=== PATIENT | male | born 1990 | race African-American/Black ===

== ENCOUNTER → 2021-03-15 | Outpatient (CLI) | payer OTHER ==
--- NOTE | 2021-03-15 10:59 | REP ---
INDICATION: CUTS LAXA HALEY BREAST AFTER SIGNIFICANT WEIGHT LOSS; CUTIS LAXA HALEY BREASTS AFTER SIGNIFICANT WEIGHT LOSS. COMPARISON: No comparison breast imaging. TECHNIQUE: Bilateral CC and MLO) view(s) were taken. FINDINGS: There is a pattern of fibroglandular tissue in the subareolar region and upper outer quadrant regions of each breast consistent with gynecomastia. This is symmetric. No mass lesion is seen. No architectural distortion or microcalcification is seen. No worrisome skin changes noted. No visible adenopathy. Targeted bilateral breast sonography: Bilateral retroareolar sonographic scanning shows no abnormality on either side. No mass or cyst is seen.. IMPRESSION: BI-RADS category 2 benign findings. Gynecomastia pattern bilaterally. This mammogram was interpreted with the aid of an FDA-approved computer-aided detection system. The patient states he had a clinical breast exam in January of 2021. The patient letter being requested is male patient letter M 2. RECOMMENDATION: Clinical follow-up. <Electronically signed by Isaac Guidry > 03/15/21 [id number]
== END ==
LOC: M WHC 08:36
PROVIDERS: ATTEND Physician Assistant
DX: L98.7 Excessive and redundant skin and subcutaneous tissue (principal); R63.4 Abnormal weight loss
CPT/HCPCS: 76642; 77066; G0279

== ENCOUNTER 2022-01-17 09:40 | Observation (INO) | payer OTHER ==
[2022-01-17] VITALS (7 sets, daily range): BP systolic 112–141; BP diastolic 59–72
[~2022-01-17] VITALS: Ht 190.5 cm; Wt 104.8 kg
[~2022-01-17 09:40] MED LIST: LIDOCAINE 1% MDV 20ML VIAL SQ PRN; LR 1,000 ML IV ONE; MELO15TA28 PO; ceFAZolin SOD 2 GM in IV 1 EA IV ONE
[2022-01-17 10:26] LABS: MEAN CORPUSCULAR HEMOGLOBIN 26.7 pg (27.0-33.0); MEAN CORPUSCULAR HGB CONC 33.3 g/dl (32.0-36.5); MEAN CORPUSCULAR VOLUME 80.2 fl (80.0-96.0); PLATELET COUNT, AUTOMATED 248 10^3/uL (150-450); RED BLOOD COUNT 5.61 10^6/uL (4.30-6.10); WHITE BLOOD COUNT 3.4 10^3/uL (4.0-10.0)
[2022-01-17] MEDS ORDERED: KETOROLAC 60MG 2ML VIAL As Ordered ONE (10:41)
[2022-01-17] MEDS ORDERED: ACETAMINOPHEN 1000MG 100ML IV BTL (OFIRMEV) (J0131 PER 10MG) As Ordered ONE (10:41)
[2022-01-17] MEDS ORDERED: dexameTHASONE 4 MG/ML 1ML VIAL (J1100 PER 1MG) As Ordered ONE (10:41)
[2022-01-17] MEDS ORDERED: ROCURONIUM BROMIDE 50 MG/5 ML VIAL As Ordered ONE ×2 (10:41→13:16)
[2022-01-17] MEDS ORDERED: fentaNYL 100 MCG/2 ML INJECTION As Ordered ONE (10:41)
[2022-01-17] MEDS ORDERED: ONDANSETRON 4MG/2ML VIAL As Ordered ONE (10:41)
[2022-01-17] MEDS ORDERED: propofoL 200 MG/20 ML VIAL As Ordered ONE ×2 (10:41→12:29)
[2022-01-17] MEDS ORDERED: SUGAMMADEX SODIUM 500 MG/5 ML VIAL (BRIDION) As Ordered ONE (10:41)
[2022-01-17] MEDS ORDERED: LIDOCAINE 2% 100MG/5ML SDV (FOR ANES.) As Ordered ONE (10:41)
[2022-01-17] MEDS ORDERED: MIDAZOLAM INJ 2MG/2ML VIAL (J2250 PER 1MG) As Ordered ONE (10:41)
[2022-01-17 10:49] LABS: BLOOD UREA NITROGEN 11 MG/DL (7-18); CALCIUM LEVEL 9.1 MG/DL (8.5-10.1); CARBON DIOXIDE LEVEL 31 MEQ/L (21-32); CHLORIDE LEVEL 105 MEQ/L (98-107); CREATININE FOR GFR 1.11 MG/DL (0.70-1.30); GLOMERULAR FILTRATION RATE > 60.0 (>60); GLUCOSE, FASTING 89 MG/DL (70-100); POTASSIUM SERUM 4.1 MEQ/L (3.5-5.1); SODIUM LEVEL 138 MEQ/L (136-145)
[2022-01-17] MEDS ORDERED: EPINEPHrine INJ 1 MG/ML 1ML AMP As Ordered ONE (11:11)
[2022-01-17] MEDS ORDERED: BUPIVACAINE LIPOSOME/PF 1.3% 20ML VIAL (13.3MG/ML)(EXPAREL) As Ordered ONE (11:11)
[2022-01-17] MEDS ORDERED: LIDOCAINE 1% MDV 20ML VIAL As Ordered ONE (11:11)
[2022-01-17] MEDS ORDERED: GENTAMICIN SULF 80MG/2ML VIAL As Ordered ONE (11:49)
[2022-01-17] MEDS ORDERED: ONDANSETRON 4MG/2ML VIAL IV PRN ×2 (15:45→15:55)
[2022-01-17] MEDS ORDERED: LR 1,000 ML IV SCH (15:45)
[2022-01-17] MEDS ORDERED: ACETAMINOPHEN TAB 650MG DOSE (2X325MG) PO PRN (15:55)
[2022-01-17] MEDS: LR 1,000 ML IV SCH (15:55)
[2022-01-17] MEDS: oxyCODONE 5MG TAB PO PRN ×2 (15:58→16:27)
[2022-01-17] MEDS: fentaNYL 100 MCG/2 ML INJECTION IV PRN ×4 (15:59→16:15)
[2022-01-17] MEDS: PERCOCET 5MG/325MG TAB PO PRN (17:46)
[2022-01-18 01:56] VITALS: BP 120/53
[2022-01-18] MEDS ORDERED: traMADol 50 MG TAB PO ONE ×2 (02:15→05:40)
[2022-01-18] MEDS: LR 1,000 ML IV SCH (05:36)
[2022-01-18 05:38] VITALS: BP 109/54
[2022-01-18] MEDS: PERCOCET 5MG/325MG TAB PO PRN (08:32)
[2022-01-18] MEDS ORDERED: TRAM50TA2 PO (09:29)
== END 2022-01-18 11:20 | disposition home or self-care (01) ==
LOC: M SDC 09:40 → M MS5PR 09:41
PROVIDERS: ADMIT Plastic Surgery Surgery of the Hand; ATTEND Plastic Surgery Surgery of the Hand
DX: N62 Hypertrophy of breast (principal); N64.81 Ptosis of breast; Z91.013 Allergy to seafood; Z86.16 Personal history of COVID-19
CPT/HCPCS: 19300; 36415; 80048; 85027; 88300; 88305; J0131; J0171; J0690; J1100; J1580; J2250; J2405; J3010

== ENCOUNTER → 2022-07-11 | Outpatient (REF) ==
[~2022-07-11] MED LIST changes: -LIDOCAINE 1% MDV 20ML VIAL SQ PRN; -LR 1,000 ML IV ONE; +TRAM50TA2 PO; -ceFAZolin SOD 2 GM in IV 1 EA IV ONE
== END ==
LOC: M RAD 12:53
PROVIDERS: ATTEND Physician Assistant Medical
DX: M25.551 Pain in right hip (principal)

== ENCOUNTER → 2022-11-14 | Outpatient (CLI) | payer OTHER ==
[2022-11-14 10:01] LABS: HEMATOCRIT 43.3 % (42.0-52.0); HEMOGLOBIN 14.2 g/dl (13.5-17.5); MEAN CORPUSCULAR HEMOGLOBIN 26.6 pg (27.0-33.0); MEAN CORPUSCULAR HGB CONC 32.8 g/dl (32.0-36.5); MEAN CORPUSCULAR VOLUME 81.1 fl (80.0-96.0); PLATELET COUNT, AUTOMATED 246 10^3/uL (150-450); RED BLOOD COUNT 5.34 10^6/uL (4.30-6.10); WHITE BLOOD COUNT 3.8 10^3/uL (4.0-10.0)
[2022-11-14 10:36] LABS: BLOOD UREA NITROGEN 16 MG/DL (9-23); CALCIUM LEVEL 9.1 MG/DL (8.5-10.1); CARBON DIOXIDE LEVEL 31 MMOL/L (20-31); CHLORIDE LEVEL 106 MMOL/L (98-107); CREATININE FOR GFR 1.06 MG/DL (0.70-1.30); GLOMERULAR FILTRATION RATE > 60.0 (>60); GLUCOSE, FASTING 55 MG/DL (60-100); POTASSIUM SERUM 4.6 MMOL/L (3.5-5.1); SODIUM LEVEL 143 MMOL/L (136-145)
== END ==
LOC: M LAB 09:28
PROVIDERS: ATTEND Plastic Surgery Surgery of the Hand
DX: L90.5 Scar conditions and fibrosis of skin (principal); N62 Hypertrophy of breast

== ENCOUNTER → 2022-11-21 | Outpatient (CLI) | payer OTHER ==
[~2022-11-21] MED LIST changes: +CELE100C PO; +PREG25CA PO
== END ==
LOC: M LABSMTC 10:05
PROVIDERS: ATTEND Anesthesiology
DX: Z01.818 Encounter for other preprocedural examination (principal)

== ENCOUNTER 2022-11-26 06:09 | Day surgery (SDC) | payer OTHER ==
[~2022-11-26] VITALS: Ht 190.5 cm; Wt 98.9 kg
[~2022-11-26 06:09] MED LIST changes: +ceFAZolin SOD 2 GM in IV 1 EA IV ONE
[2022-11-26] MEDS ORDERED: LR 1,000 ML IV SCH ×2 (06:35→09:40)
[2022-11-26] MEDS ORDERED: BUPIVACAINE LIPOSOME/PF 1.3% 20ML VIAL (13.3MG/ML)(EXPAREL) As Ordered ONE (07:11)
[2022-11-26] MEDS ORDERED: BUPIVACAINE HCL 0.25% 10ML VIAL As Ordered ONE (07:12)
[2022-11-26] MEDS ORDERED: GENTAMICIN SULF 80MG/2ML VIAL As Ordered ONE (07:12)
[2022-11-26] MEDS ORDERED: LIDOCAINE 2% 100MG/5ML SDV (FOR ANES.) As Ordered ONE (07:18)
[2022-11-26] MEDS ORDERED: ONDANSETRON 4MG 2ML VIAL As Ordered ONE (07:18)
[2022-11-26] MEDS ORDERED: LIDOCAINE 5% OINT 30GM TUBE As Ordered ONE (07:18)
[2022-11-26] MEDS ORDERED: fentaNYL 250 MCG/5 ML INJECTION As Ordered ONE (07:18)
[2022-11-26] MEDS ORDERED: propofoL 200 MG/20 ML VIAL As Ordered ONE (07:18)
[2022-11-26] MEDS ORDERED: MIDAZOLAM INJ 2MG/2ML VIAL As Ordered ONE (07:19)
[2022-11-26] MEDS ORDERED: ACETAMINOPHEN 1000MG 100ML IV BAG As Ordered ONE (08:03)
[2022-11-26] MEDS ORDERED: ONDANSETRON 4MG 2ML VIAL IV PRN (09:40)
[2022-11-26] MEDS ORDERED: oxyCODONE 5MG TAB PO PRN (09:40)
[2022-11-26] MEDS ORDERED: HYDROMORPHONE HCL 0.5 MG/ 0.5 ML SYRINGE IV PRN (09:40)
[2022-11-26] MEDS ORDERED: fentaNYL 100 MCG/2 ML INJECTION IV PRN (09:40)
[2022-11-26] MEDS ORDERED: MEPERIDINE 50 MG/ML 1ML VIAL As Ordered ONE (09:50)
[2022-11-26] MEDS ORDERED: TRAM50TA2 PO (10:06)
[2022-11-26 11:50] VITALS: BP 127/69
== END 2022-11-26 11:55 | disposition home or self-care (01) ==
LOC: M SDC 06:09
PROVIDERS: ATTEND Plastic Surgery Surgery of the Hand
DX: N64.81 Ptosis of breast (principal); L90.5 Scar conditions and fibrosis of skin; N62 Hypertrophy of breast
CPT/HCPCS: 19380; 88302; C9290; J0131; J0690; J1100; J1580; J2175; J2250; J2405; J3010; S0020